=== PATIENT | female | born 1985 | race Two or more races ===

== ENCOUNTER 2020-07-30 00:03 | Emergency (ER) | payer SELFPAY ==
[~2020-07-30] VITALS: Ht 165.1 cm; Wt 74.8 kg
--- NOTE | 2020-07-30 00:18 | NUR ---
DR Hawthorne gave verbal ACI to patient.
== END 2020-07-30 00:18 | disposition home or self-care (01) ==
LOC: ER 00:07
DX: Z76.0 Encounter for issue of repeat prescription (principal)
CPT/HCPCS: A4663